=== PATIENT | female | born 1960 | race Caucasian/White ===

== ENCOUNTER 2019-07-14 12:52 | Emergency (ER) | payer MEDICAID ==
--- NOTE | 2019-07-14 14:15 | NUR ---
[email or web address]
--- NOTE | 2019-07-14 14:30 | NUR ---
[id number]
--- NOTE | 2019-07-14 15:09 | NUR ---
[email or web address]
== END 2019-07-14 15:11 | disposition left against medical advice (07) ==
LOC: ED 15:00
DX: M54.9 Dorsalgia, unspecified (principal); Z53.21 Procedure and treatment not carried out due to patient leaving prior to being seen by health care provider

== ENCOUNTER 2020-03-06 10:22 | Emergency (ER) | payer SELFPAY ==
[~2020-03-06] VITALS: Ht 152.4 cm; Wt 70.2 kg
--- NOTE | 2020-03-06 10:35 | NUR ---
Pt to room from triage with out any acute distress noticed.
--- NOTE | 2020-03-06 10:37 | NUR ---
Pt c/o "9 months" of neck, shoulder, bilateral hand, and bilateral leg intermittent pain that interfears with ability to exercise and difficulty with sleeping. Full range of motion and strength. Pt complaining of "24 hours of pain" and "intermittent pain". NADN. Pt connected to NIBP cuff and continous pulse ox, call light within reach. ED PA at bedside. No needs expressed at this time.
[2020-03-06 10:40] VITALS: BP 154/94
[2020-03-06] MEDS ORDERED: PROPANOLOL PO (10:46)
--- NOTE | 2020-03-06 10:46 | NUR ---
Pt denies injury or trauma.
[2020-03-06] MEDS ORDERED: KETOROLAC 30 MG/1 ML ONE (10:52)
[2020-03-06] MEDS ORDERED: ACETAMINOPHEN 325 MG TABLET ONE (10:53)
[2020-03-06] MEDS ORDERED: ACETAMINOPHEN 325 MG TABLET PO ONE (11:00)
[2020-03-06] MEDS ORDERED: KETOROLAC 30 MG/1 ML IM ONE (11:00)
--- NOTE | 2020-03-06 11:06 | NUR ---
Provided medication per EMAR. Pt appreciative.
[2020-03-06 11:14] LABS: BASOPHILS # (AUTO) 0.12 x10^3/uL (0-0.1); BASOPHILS % (AUTO) 1 % (0-1); EOSINOPHILS # (AUTO) 0.31 x10^3/uL (0-0.4); EOSINOPHILS % (AUTO) 3 % (1-7); LYMPHOCYTES # (AUTO) 3.94 x10^3/uL (1-3.4); LYMPHOCYTES % (AUTO) 40 % (22-44); MD NO; MEAN CORPUSCULAR HEMOGLOBIN 28.3 pg (27.0-34.8); MEAN CORPUSCULAR HGB CONC 33.7 g/dL (32.4-35.8); MEAN CORPUSCULAR VOLUME 83.9 fL (80-100); MONOCYTES # (AUTO) 0.61 x10^3/uL (0.2-0.8); MONOCYTES % (AUTO) 6 % (2-9); NEUTROPHILS # (AUTO) 4.94 x10^3/uL (1.8-6.8); NEUTROPHILS % (AUTO) 50 % (42-75); PLATELET COUNT 355 x10^3/uL (130-400); RED BLOOD COUNT 5.03 x10^6/uL (3.82-5.3); RED CELL DISTRIBUTION WIDTH 14.3 % (9.6-15.2)
[2020-03-06 11:15] LABS: HCT (SEDRATE) 42.1 % (34.6-47.8)
[2020-03-06 11:21] LABS: ALANINE AMINOTRANSFERASE 21 U/L (12-78); ALBUMIN 3.5 g/dL (3.4-5.0); ANION GAP 5 mmol/L (5-15); C-REACTIVE PROTEIN, QUANT 0.48 mg/dL (0.02-0.49); CALCIUM 9.2 mg/dL (8.5-10.1); CHLORIDE 110 mmol/L (98-107)
[2020-03-06 11:23] LABS: ALKALINE PHOSPHATASE 130 U/L (45-117); BILIRUBIN,TOTAL 0.2 mg/dL (0.2-1.0); TOTAL PROTEIN 7.6 g/dL (6.4-8.2)
--- NOTE | 2020-03-06 13:11 | NUR ---
Assumed care for discharge. Pt given clinic referral and pain clinic referral. Verbalizes understanding.
== END 2020-03-06 13:24 | disposition home or self-care (01) ==
LOC: ED 13:20
DX: M35.3 Polymyalgia rheumatica (principal); M25.511 Pain in right shoulder; M25.512 Pain in left shoulder; M54.2 Cervicalgia; I10 Essential (primary) hypertension; F17.200 Nicotine dependence, unspecified, uncomplicated
CPT/HCPCS: 36415; 80053; 85025; 85651; 86140; 96372; 99283; J1885

== ENCOUNTER 2020-05-20 09:46 | Emergency (ER) | payer SELFPAY ==
[~2020-05-20] VITALS: Ht 152.4 cm; Wt 70.5 kg
[~2020-05-20 09:46] MED LIST: PROPANOLOL PO
--- NOTE | 2020-05-20 10:22 | NUR ---
PT CAME IN CO OF ABD PAIN AND CONSTIPATION X 3 DAYS. PT STATES SHES BEEN TAKING OTC MEDS FOR HER CONSTIPATION BUT IT ISNT WORKING. MD PERFORMED EXAM WITH FEMALE RN IN THE ROOM AND PT WAS FOUND TO HAVE HEMMROIDS
[2020-05-20 10:43] LABS: BASOPHILS % (AUTO) 0 % (0-1); EOSINOPHILS % (AUTO) 3 % (1-7); LYMPHOCYTES % (AUTO) 42 % (22-44); MEAN CORPUSCULAR HEMOGLOBIN 27.9 pg (27.0-34.8); MEAN CORPUSCULAR HGB CONC 33.7 g/dL (32.4-35.8); MEAN PLATELET VOLUME 8.9 fL (7.4-10.4); MONOCYTES % (AUTO) 6 % (2-9); NEUTROPHILS % (AUTO) 48 % (42-75); PLATELET COUNT 342 x10^3/uL (130-400); RED BLOOD COUNT 5.16 x10^6/uL (3.82-5.3); RED CELL DISTRIBUTION WIDTH 14.1 % (9.6-15.2)
[2020-05-20 10:50] LABS: ALANINE AMINOTRANSFERASE 19 U/L (12-78); ANION GAP 4 mmol/L (5-15); CALCIUM 9.2 mg/dL (8.5-10.1); CHLORIDE 104 mmol/L (98-107); CREATININE 0.81 mg/dL (0.55-1.02); MD NO
[2020-05-20 10:53] LABS: ALKALINE PHOSPHATASE 107 U/L (45-117); BILIRUBIN,TOTAL 0.4 mg/dL (0.2-1.0)
--- NOTE | 2020-05-20 11:09 | NUR ---
PT DID NOT TOLERATE HHH AT ALL. WAS ONLY ABLE TO ADVANCE TUBING APPROX 3'' UP RECTUM. PT ONLY TOLERATED APPROX 20MLs BEFORE SHE SCREAMED AND RIPPED OUT TUBING
[2020-05-20] MEDS ORDERED: LORazepam 1MG TABLET ONE (11:14)
--- NOTE | 2020-05-20 11:16 | NUR ---
PT MEDICATED PER MAR
[2020-05-20] MEDS ORDERED: LORazepam 1MG TABLET PO ONE (11:30)
--- NOTE | 2020-05-20 11:59 | NUR ---
PT RELIEVED. ENEMA WORKED.
[2020-05-20 12:09] VITALS: BP 135/99
== END 2020-05-20 12:42 | disposition home or self-care (01) ==
LOC: ED 11:30
DX: K59.00 Constipation, unspecified (principal); R10.10 Upper abdominal pain, unspecified
CPT/HCPCS: 36415; 74022; 80053; 83690; 85025; 93005; 99285

== ENCOUNTER 2021-01-22 10:39 | Emergency (ER) | payer SELFPAY ==
[~2021-01-22] VITALS: Ht 152.4 cm; Wt 70.6 kg
--- NOTE | 2021-01-22 11:23 | NUR ---
PT STATES BILAT SWELLING TO ANKLES X1 MONTH. LAB AT BEDSIDE FOR DRAW. CALL LIGHT IN REACH, CONT TO MONITOR.
[2021-01-22 11:24] LABS: BASOPHILS % (AUTO) 1 % (0-1); EOSINOPHILS % (AUTO) 5 % (1-7); LYMPHOCYTES % (AUTO) 36 % (22-44); MEAN CORPUSCULAR HEMOGLOBIN 28.1 pg (27.0-34.8); MEAN CORPUSCULAR HGB CONC 33.8 g/dL (32.4-35.8); MEAN PLATELET VOLUME 8.6 fL (7.4-10.4); MONOCYTES % (AUTO) 6 % (2-9); NEUTROPHILS % (AUTO) 52 % (42-75); PLATELET COUNT 364 x10^3/uL (130-400); RED BLOOD COUNT 4.92 x10^6/uL (3.82-5.3); RED CELL DISTRIBUTION WIDTH 14.7 % (9.6-15.2)
[2021-01-22 11:34] LABS: ALANINE AMINOTRANSFERASE 28 U/L (12-78); ALBUMIN 3.4 g/dL (3.4-5.0); ANION GAP 4 mmol/L (5-15); CALCIUM 8.9 mg/dL (8.5-10.1); CHLORIDE 105 mmol/L (98-107); CREATININE 0.74 mg/dL (0.55-1.02)
[2021-01-22 11:38] LABS: ALKALINE PHOSPHATASE 100 U/L (45-117); BILIRUBIN,TOTAL 0.3 mg/dL (0.2-1.0); TOTAL PROTEIN 7.6 g/dL (6.4-8.2)
--- NOTE | 2021-01-22 13:06 | NUR ---
PT RESTING IN BED, NO DISTRESS. UP FOR ERMD RECHECK. PT GIVEN WATER. REMAINS ON MONITORS. CONT TO MONITOR.
--- NOTE | 2021-01-22 14:03 | NUR ---
PT GIVEN D/C INSTRUCTIONS, VERBALIZED UNDERSTANDING. WITH STEADY GAIT UPON D/C, HAS ALL OWN BELONGINGS.
[2021-01-22 14:04] VITALS: BP 167/102
== END 2021-01-22 14:06 | disposition home or self-care (01) ==
LOC: ED 11:27
DX: R60.0 Localized edema (principal); M25.571 Pain in right ankle and joints of right foot; Z76.0 Encounter for issue of repeat prescription; I10 Essential (primary) hypertension
CPT/HCPCS: 36415; 71045; 80053; 83880; 85025; 93005; 99285